=== PATIENT | female | born 1930 | race Caucasian/White ===

== ENCOUNTER 2016-11-27 13:32 | Inpatient (IN) | payer MEDICARE ==
[~2016-11-27] VITALS: Ht 152.4 cm; Wt 57.0 kg
[~2016-11-27 13:32] MED LIST: ASPIRIN 81M81 MG/TA2 PO; BETAPACE 80MG80 MG PO; COLACE 100100 MG/CAP PO; GLUCOPHAGE1000 MG PO; KLOR-CON M2020 MEQ PO; LANOXIN 0.120.125 MG PO; LASIX 40MG TABL40 MG PO; MULTAQ400 MG PO; RT ADVAIR 128 DISKUS IH; ZOCOR 10MG10 MG PO
[2016-11-27 14:47] VITALS: BP 104/48; PULSE 97; TEMP 98.1
[2016-11-27] MEDS ORDERED: ELIQUIS 2.5 PO (16:15)
[2016-11-27] MEDS ORDERED: PACERONE100 MG PO (16:15)
[2016-11-27 17:42] LABS: MEAN CELL VOLUME 88 fl (80.0-100.0); MEAN CORPUSCULAR HGB CONC 29 g/dl (33.0-37.0); MEAN PLATELET VOLUME 8.7 fl (7.4-10.4); PLATELET COUNT 555 K/mm3 (130-400); RED BLOOD COUNT 2.97 M/mm3 (4.10-5.30); REDCELL DISTRIBUTION WIDTH-CV 17.7 % (11.5-14.5); WHITE BLOOD COUNT 8.2 K/mm3 (4.8-10.8)
[2016-11-27 17:48] LABS: HEMATOCRIT 26.1 % (37.0-47.0); HEMOGLOBIN 7.5 g/dl (12.5-16.0); MEAN CORPUSCULAR HEMOGLOBIN 25 pg (27.0-31.0)
[2016-11-27 17:54] LABS: CALCIUM 8.8 mg/dL (8.4-10.2); CREATININE, serum 1.48 mg/dL (0.52-1.25)
[2016-11-27 23:40] VITALS: BP 133/48; PULSE 76; TEMP 98.3
[2016-11-27 23:58] VITALS: BP 131/39; PULSE 77
[2016-11-28] VITALS (15 sets, daily range): BP systolic 89–150; BP diastolic 35–53; PULSE 73–81; TEMP 97.4–98
[2016-11-28 11:42] LABS: CALCIUM 8.4 mg/dL (8.4-10.2); CREATININE, serum 1.41 mg/dL (0.52-1.25)
[2016-11-28 11:57] LABS: POTASSIUM 2.9 mmol/L (3.4-5.0)
[2016-11-28 12:27] LABS: HEMATOCRIT 29.5 % (37.0-47.0); HEMOGLOBIN 8.4 g/dl (12.5-16.0)
[2016-11-28 13:20] LABS: CALCIUM 8.6 mg/dL (8.4-10.2); CREATININE, serum 1.39 mg/dL (0.52-1.25); POTASSIUM 3.2 mmol/L (3.4-5.0)
[2016-11-28 13:23] LABS: INR 1.3 (0.8-3.0)
[2016-11-28 13:24] LABS: BASO % 0.4 % (0.0-2.0); EOS % 0.5 % (0-4.0); GRAN # 6.2 (1.4-6.5); GRAN % 77.9 % (42.2-75.2); LYMPH # 1.3 (1.2-3.4); LYMPH % 16.2 % (20.0-51.0); MEAN CELL VOLUME 88 fl (80.0-100.0); MEAN CORPUSCULAR HGB CONC 31 g/dl (33.0-37.0); MEAN PLATELET VOLUME 8.6 fl (7.4-10.4); MONO # 0.4 (0.1-0.6); MONO % 4.5 % (1.7-9.3); PLATELET COUNT 467 K/mm3 (130-400); RED BLOOD COUNT 3.68 M/mm3 (4.10-5.30); REDCELL DISTRIBUTION WIDTH-CV 16.6 % (11.5-14.5)
[2016-11-28 13:39] LABS: HEMATOCRIT 32.5 % (37.0-47.0); HEMOGLOBIN 9.9 g/dl (12.5-16.0); MEAN CORPUSCULAR HEMOGLOBIN 27 pg (27.0-31.0)
[2016-11-28 23:14] LABS: PARTIAL THROMBOPLASTIN TIME 60.6 SECONDS (26.0-37.0)
[2016-11-29 01:17] LABS: PARTIAL THROMBOPLASTIN TIME 40.9 SECONDS (26.0-37.0)
[2016-11-29 01:28] VITALS: BP 131/36; PULSE 75
[2016-11-29 07:43] VITALS: BP 134/49; PULSE 79; TEMP 98.3
[2016-11-29 08:07] LABS: CALCIUM 8.5 mg/dL (8.4-10.2); POTASSIUM 3.4 mmol/L (3.4-5.0)
[2016-11-29 08:25] LABS: CREATININE, serum 1.38 mg/dL (0.52-1.25)
[2016-11-29 11:43] VITALS: BP 130/73; PULSE 94; TEMP 97.6
[2016-11-29 20:15] VITALS: BP 143/47; PULSE 87; TEMP 97.6
[2016-11-30] VITALS (7 sets, daily range): BP systolic 102–153; BP diastolic 40–50; PULSE 72–90; TEMP 97.5–98.9
[2016-11-30 07:19] LABS: MEAN CELL VOLUME 89 fl (80.0-100.0); MEAN CORPUSCULAR HGB CONC 30 g/dl (33.0-37.0); MEAN PLATELET VOLUME 8.6 fl (7.4-10.4); PLATELET COUNT 420 K/mm3 (130-400); RED BLOOD COUNT 3.84 M/mm3 (4.10-5.30); REDCELL DISTRIBUTION WIDTH-CV 16.8 % (11.5-14.5); WHITE BLOOD COUNT 6.4 K/mm3 (4.8-10.8)
[2016-11-30 07:32] LABS: CALCIUM 8.5 mg/dL (8.4-10.2); CREATININE, serum 1.36 mg/dL (0.52-1.25); POTASSIUM 3.4 mmol/L (3.4-5.0)
[2016-11-30 08:05] LABS: HEMOGLOBIN 10.2 g/dl (12.5-16.0); MEAN CORPUSCULAR HEMOGLOBIN 27 pg (27.0-31.0)
[2016-12-01 04:29] VITALS: BP 132/47; PULSE 78; TEMP 98.6
[2016-12-01 07:37] LABS: CALCIUM 8.9 mg/dL (8.4-10.2); CREATININE, serum 1.4 mg/dL (0.52-1.25); POTASSIUM 3.7 mmol/L (3.4-5.0)
[2016-12-01 08:14] VITALS: BP 120/68; PULSE 95; TEMP 97.5
[2016-12-01 11:50] VITALS: BP 119/46; PULSE 82; TEMP 97.8
[2016-12-01 16:25] VITALS: BP 116/44; PULSE 96; TEMP 97.7
[2016-12-01 19:17] VITALS: BP 122/42; PULSE 90; TEMP 98.5
[2016-12-01 23:25] VITALS: BP 133/43; PULSE 79; TEMP 98.8
[2016-12-02 03:24] VITALS: BP 109/64; PULSE 65; TEMP 98.4
[2016-12-02 05:57] VITALS: BP 125/43; PULSE 78; TEMP 97.2
[2016-12-02 07:33] LABS: MEAN CELL VOLUME 90 fl (80.0-100.0); MEAN CORPUSCULAR HGB CONC 30 g/dl (33.0-37.0); MEAN PLATELET VOLUME 8.7 fl (7.4-10.4); PLATELET COUNT 409 K/mm3 (130-400); RED BLOOD COUNT 3.96 M/mm3 (4.10-5.30); REDCELL DISTRIBUTION WIDTH-CV 16.7 % (11.5-14.5); WHITE BLOOD COUNT 6.1 K/mm3 (4.8-10.8)
[2016-12-02 07:38] LABS: HEMATOCRIT 35.6 % (37.0-47.0); HEMOGLOBIN 10.5 g/dl (12.5-16.0); MEAN CORPUSCULAR HEMOGLOBIN 27 pg (27.0-31.0)
[2016-12-02 07:44] VITALS: BP 116/52; PULSE 81; TEMP 97.6
[2016-12-02 07:49] LABS: CREATININE, serum 1.58 mg/dL (0.52-1.25); POTASSIUM 3.7 mmol/L (3.4-5.0)
[2016-12-02 11:17] VITALS: BP 134/44; PULSE 79; TEMP 98
[2016-12-02] MEDS ORDERED: PRADAXA75 MG PO (14:25)
== END 2016-12-02 16:24 | disposition home or self-care (01) | DRG 300 ==
LOC: MEDICAL 13:32
PROVIDERS: Internal Medicine Interventional Cardiology
DX: I72.4 Aneurysm of artery of lower extremity (principal); I82.422 Acute embolism and thrombosis of left iliac vein; J44.9 Chronic obstructive pulmonary disease, unspecified; Z95.1 Presence of aortocoronary bypass graft; I25.10 Atherosclerotic heart disease of native coronary artery without angina pectoris; E11.9 Type 2 diabetes mellitus without complications; I27.2 Other secondary pulmonary hypertension; I48.91 Unspecified atrial fibrillation; Z79.01 Long term (current) use of anticoagulants
CPT/HCPCS: J1644; J1940; J3010; J7060; P9016

== ENCOUNTER 2017-01-21 15:58 | Observation (INO) | payer MEDICARE ==
[~2017-01-21] VITALS: Ht 154.9 cm; Wt 51.7 kg
[~2017-01-21 15:58] MED LIST changes: +ELIQUIS 2.5 PO; +PACERONE100 MG PO; +PRADAXA75 MG PO
[2017-01-21 16:53] VITALS: BP 94/39; PULSE 101; TEMP 97.6
[2017-01-21] MEDS ORDERED: PLAVIX 75MG TAB75 MG PO (17:01)
[2017-01-21] MEDS ORDERED: ASPIRIN E.C. 8181 MG PO (17:04)
[2017-01-21 18:02] LABS: BASO % 0.2 % (0.0-2.0); EOS % 0.3 % (0-4.0); GRAN # 10.6 (1.4-6.5); GRAN % 92.7 % (42.2-75.2); LYMPH # 0.4 (1.2-3.4); LYMPH % 3.6 % (20.0-51.0); MEAN CELL VOLUME 90 fl (80.0-100.0); MEAN CORPUSCULAR HGB CONC 30 g/dl (33.0-37.0); MEAN PLATELET VOLUME 9.7 fl (7.4-10.4); MONO # 0.3 (0.1-0.6); MONO % 2.8 % (1.7-9.3); PLATELET COUNT 303 K/mm3 (130-400); REDCELL DISTRIBUTION WIDTH-CV 19.3 % (11.5-14.5); WHITE BLOOD COUNT 11.4 K/mm3 (4.8-10.8)
[2017-01-21 18:08] LABS: HEMATOCRIT 34.2 % (37.0-47.0); HEMOGLOBIN 10.3 g/dl (12.5-16.0); MEAN CORPUSCULAR HEMOGLOBIN 27 pg (27.0-31.0)
[2017-01-21 18:18] LABS: CALCIUM 8.1 mg/dL (8.4-10.2); CREATININE, serum 1.14 mg/dL (0.52-1.25); POTASSIUM 3.2 mmol/L (3.4-5.0)
[2017-01-21 20:27] VITALS: BP 66/36; BP 99/34; PULSE 99; TEMP 98
[2017-01-22] VITALS (7 sets, daily range): BP systolic 96–131; BP diastolic 39–47; PULSE 68–92; TEMP 97.7–98.6
[2017-01-23 03:19] VITALS: BP 133/60; PULSE 81; TEMP 98.1
[2017-01-23 08:29] VITALS: BP 114/50; PULSE 90; TEMP 97.8
[2017-01-23 11:43] VITALS: BP 127/40; PULSE 85; TEMP 96.8
[2017-01-23 15:42] VITALS: BP 132/50; PULSE 90; TEMP 98.2
[2017-01-23 20:50] VITALS: BP 143/53; PULSE 85; TEMP 97.6
[2017-01-24] VITALS (7 sets, daily range): BP systolic 133–158; BP diastolic 39–72; PULSE 79–92; TEMP 97.9–98.6
[2017-01-25 03:08] VITALS: BP 147/50; PULSE 90; TEMP 98.9
[2017-01-25 07:33] VITALS: BP 144/55; PULSE 79; TEMP 97.5
[2017-01-25] MEDS ORDERED: TYLENOL 325MG325 MG PO (11:17)
[2017-01-25 12:08] VITALS: BP 134/50; PULSE 81; TEMP 98
== END 2017-01-25 13:56 | disposition home or self-care (01) ==
LOC: MEDICAL 15:58
PROVIDERS: Internal Medicine Interventional Cardiology
DX: R53.1 Weakness (principal); E43 Unspecified severe protein-calorie malnutrition; R63.4 Abnormal weight loss; I73.9 Peripheral vascular disease, unspecified; I25.10 Atherosclerotic heart disease of native coronary artery without angina pectoris; E11.9 Type 2 diabetes mellitus without complications; R60.0 Localized edema; I82.522 Chronic embolism and thrombosis of left iliac vein; I70.213 Atherosclerosis of native arteries of extremities with intermittent claudication, bilateral legs; I48.91 Unspecified atrial fibrillation; I10 Essential (primary) hypertension; Z79.01 Long term (current) use of anticoagulants; I27.2 Other secondary pulmonary hypertension; I08.1 Rheumatic disorders of both mitral and tricuspid valves; Z87.891 Personal history of nicotine dependence
CPT/HCPCS: OP; G0378; G8978-GP; G8979-GP; G8987-GO; G8988-GO; J1940

== ENCOUNTER 2017-02-27 13:20 | Inpatient (IN) | payer MEDICARE ==
[~2017-02-27] VITALS: Ht 154.9 cm; Wt 50.3 kg
[~2017-02-27 13:20] MED LIST changes: +ASPIRIN E.C. 8181 MG PO; +PLAVIX 75MG TAB75 MG PO; +TYLENOL 325MG325 MG PO
[2017-02-27 14:31] VITALS: BP 149/93; PULSE 85; TEMP 97.8
--- NOTE | 2017-02-27 15:24 | NUR ---
22 gauge INT inserted into left hand. Telemetry applied. Medications, allergies, and pharmacy updated. Dr. Corcoran updated on arrival Medication list given to him. Daughter at bedside.
[2017-02-27 16:36] VITALS: BP 189/76; PULSE 76; TEMP 98.4
[2017-02-27 16:45] LABS: MEAN CELL VOLUME 91 fl (80.0-100.0); MEAN CORPUSCULAR HGB CONC 29 g/dl (33.0-37.0); PLATELET COUNT 440 K/mm3 (130-400); RED BLOOD COUNT 3.79 M/mm3 (4.10-5.30); REDCELL DISTRIBUTION WIDTH-CV 18.6 % (11.5-14.5)
[2017-02-27 16:46] LABS: HEMATOCRIT 34.6 % (37.0-47.0); HEMOGLOBIN 10.1 g/dl (12.5-16.0); MEAN CORPUSCULAR HEMOGLOBIN 27 pg (27.0-31.0)
--- NOTE | 2017-02-27 16:47 | NUR ---
Pt with scattered bruising allover body. Skin tear noted to rigth casillas, 0.5ml. Dr. Corcoran orders a WCC for this. 4+ edema to BLE. Bumex given, infusing as ordered, see OCT. RT in room for EKG at this time. Call light within reach.
[2017-02-27 16:58] LABS: CALCIUM 8.6 mg/dL (8.4-10.2); CREATININE, serum 1.09 mg/dL (0.52-1.25); POTASSIUM 3.8 mmol/L (3.4-5.0)
--- NOTE | 2017-02-27 20:15 | NUR ---
Pt A+Ox3, sitting up in bed. Frequent use of bedside commode to urinate clear yellow urine. Bilateral lower leg edema is 3+. No complaints of shortness of breath, 2 liters oxygen applied via NC. IV as no s/s complications, no further needs at this time. Applying barrier cream to buttox after sawyer care.
[2017-02-27 20:23] VITALS: BP 170/60; BP 173/63; PULSE 77; TEMP 98
[2017-02-27 23:02] VITALS: BP 175/62; PULSE 80; TEMP 97.6
[2017-02-28 03:56] VITALS: BP 159/68; PULSE 88; TEMP 97.5
--- NOTE | 2017-02-28 06:20 | NUR ---
Throughout night pt had no c/o pain, IV has no s/s complications. Pt was assisted to commode many times for urination and one bowel movement. Vitals remain stable,.
--- NOTE | 2017-02-28 07:23 | NUR ---
Report given to alexa RN. Pt on commode.
[2017-02-28 07:37] LABS: CALCIUM 8.5 mg/dL (8.4-10.2); CREATININE, serum 1.13 mg/dL (0.52-1.25); POTASSIUM 3.6 mmol/L (3.4-5.0)
[2017-02-28 08:00] VITALS: BP 177/61; PULSE 61; TEMP 98.6
--- NOTE | 2017-02-28 08:03 | NUR ---
Report received from CATIE Pryor. [place] [facility] Call light in reach.
--- NOTE | 2017-02-28 08:20 | NUR ---
Pt having breakfast in bed alert and oriented. Pt denied pain. Cup of juice provided per pt's request. Call light in reach.
--- NOTE | 2017-02-28 10:10 | NUR ---
Visit attempted and pt sleeping in her chair. Call light in reach.
--- NOTE | 2017-02-28 11:52 | NUR ---
First visit from the yardage control operator forming. No needs right now.
--- NOTE | 2017-02-28 11:58 | NUR ---
Pt resting in bed comfortably and denied pain. Call light in reach.
[2017-02-28 12:00] VITALS: BP 115/41; PULSE 102; TEMP 98.3
--- NOTE | 2017-02-28 13:27 | NUR ---
SW met with patient to review discharge plan. The patient was discharged home with daughter on previous admission, patient confirms that she was never admitted to [facility]. Patient is open to nursing facility placement upon discharge, she requests that SW contact daughter to discuss discharge plan. SW contacted daughter, daughter reports that she would like for the patient to go to [facility] upon discharge. Referral made to [facility] reporting that the patient will require pre-authorization for skilled stay, and they will not hear back from insurance until Friday, 03/03.
--- NOTE | 2017-02-28 14:32 | NUR ---
Pt resting in bed comfortably and no concern. Call light in reach.
--- NOTE | 2017-02-28 15:31 | NUR ---
Visit attempted and pt sleeping soundly in bed. Call light in reach.
[2017-02-28 16:07] VITALS: BP 105/65; BP 143/57; PULSE 53; PULSE 81; TEMP 98; TEMP 98.7
--- NOTE | 2017-02-28 16:58 | NUR ---
Pt resting in bed comfortably and having dinner. Call light in reach.
--- NOTE | 2017-02-28 17:38 | NUR ---
Pt used BSC to urinate and have BM. pt back to bed. Pt's daughter visiting in . Call light in reach.
--- NOTE | 2017-02-28 19:12 | NUR ---
Report given to CATIE Pryor. Pt resting in bed. Call light in reach.
[2017-02-28 19:57] VITALS: BP 156/59; PULSE 76; TEMP 97.4
--- NOTE | 2017-02-28 21:40 | NUR ---
Pt sitting on commode, having frequent urination. Bruises up arms and legs bilaterally, edema 2+ bilateral lower legs. Assessment findings within normal limits. No c/o pain, nausea. IV has no s/s complciations. will cotnienu to monitor.
[2017-03-01 01:18] VITALS: BP 139/48; PULSE 81; TEMP 97.7
[2017-03-01 05:15] VITALS: BP 138/56; PULSE 79; TEMP 98.2
--- NOTE | 2017-03-01 06:10 | NUR ---
Throughout night pt had no c/o pain, IV has no s/s complications. Pt was assisted to BSC many times to urinate. Pt is weak but reasonably stable on her feet. Vitals remain stable.
[2017-03-01 07:30] LABS: BLOOD UREA NITROGEN 16 mg/dL (7-17); CALCIUM 8.5 mg/dL (8.4-10.2); CHLORIDE 93 mmol/L (98-107); CREATININE, serum 1.28 mg/dL (0.52-1.25); GLUCOSE 95 mg/dL (74-106); POTASSIUM 3.5 mmol/L (3.4-5.0); SODIUM 142 mmol/L (137-145)
[2017-03-01 07:36] LABS: CARBON DIOXIDE 39 mmol/L (22-30)
--- NOTE | 2017-03-01 07:36 | NUR ---
report given to day RN. Pt asleep at this time, no immediate needs.
[2017-03-01 07:41] VITALS: BP 141/59; PULSE 82; TEMP 98.1
--- NOTE | 2017-03-01 08:00 | NUR ---
ASSESSMENT COMPLETED. A&OX3, ABLE TO VERBALIZE NEEDS. DENIES PAIN. NO RESP. DISTRESS NOTED. VSS. TELE ON. PERIPHERAL PULSES PALPABLE B/L. +2 EDEMA BLE. BUMEX INFUSING PER ORDERS TO LEFT HAND. DENIES NEEDS. CALL LIGHT IN REACH.
[2017-03-01 12:19] VITALS: BP 131/54; PULSE 84; TEMP 98.3
[2017-03-01 16:11] VITALS: BP 143/53; PULSE 77; TEMP 98.3
--- NOTE | 2017-03-01 21:30 | NUR ---
Pt lying in bed, A+Ox3. No complaints of shortness of breath, 2 L oxygen via NC applied. Left lower extremity has 2+ edema, right lower 1+, greatly improved since yesterday. IV has no s/s complications.
[2017-03-01 21:35] VITALS: BP 140/50; PULSE 85; TEMP 98.2
[2017-03-02 00:10] VITALS: BP 141/60; PULSE 88
--- NOTE | 2017-03-02 06:52 | NUR ---
Throughout night pt was assisted to BSC about hourly, urine clear yellow. Vitals remain stable, Tele normal sinus. No notable changes in status. Bed low, call light in reach,
[2017-03-02 07:10] LABS: CALCIUM 8.5 mg/dL (8.4-10.2); CREATININE, serum 1.37 mg/dL (0.52-1.25); POTASSIUM 3.3 mmol/L (3.4-5.0)
[2017-03-02 07:49] VITALS: BP 125/52; PULSE 85; TEMP 98
--- NOTE | 2017-03-02 08:40 | NUR ---
Assessment completed. A&OX3, able to verbalize needs. Denies pain. No resp. disress noted on room air. VSS. +2 BLE edema. BLE currently elevated. Bumex infusing per orders to left hand. Accurate I&O continue to be obtained. Denies further needs. Call light in reach.
[2017-03-02 13:10] VITALS: BP 148/51; PULSE 88; TEMP 97.9
[2017-03-02 16:07] VITALS: BP 117/50; PULSE 99; TEMP 98.1
--- NOTE | 2017-03-02 20:00 | NUR ---
Pt laying in bed. Assessment complete. A&Ox3. Lungs CTA. Heart rhythm regular. Audible bowel sounds X4. IV fluids infusing per orders without difficulty. Pt denies pain at this time. Pt denies any needs at this time. Call light in reach. Will continue to monitor.
[2017-03-02 20:33] VITALS: BP 147/66; PULSE 87; TEMP 97.8
[2017-03-02 23:02] VITALS: BP 152/58; PULSE 80; TEMP 98.4
[2017-03-03 03:19] VITALS: BP 151/69; PULSE 68; TEMP 98.3
--- NOTE | 2017-03-03 07:30 | NUR ---
Pt sleeping at this time. Report given to Liz HADDAD.
[2017-03-03 08:22] LABS: CALCIUM 8.4 mg/dL (8.4-10.2); CREATININE, serum 1.32 mg/dL (0.52-1.25); POTASSIUM 3.3 mmol/L (3.4-5.0)
[2017-03-03 09:14] VITALS: BP 147/62; PULSE 82; TEMP 97.3
--- NOTE | 2017-03-03 09:39 | NUR ---
Pt resting in bed with call light within reach; bumex drip infusing to left hand without complication. Assessment complete and charted; no further needs at this time. Will continue to monitor.
--- NOTE | 2017-03-03 11:12 | NUR ---
[facility] denies patient.
--- NOTE | 2017-03-03 11:52 | NUR ---
First visit from the cyanide pot hardener. No needs right now.
[2017-03-03 13:20] VITALS: BP 1449/60; BP 149/60; PULSE 79; TEMP 98.2
--- NOTE | 2017-03-03 15:29 | NUR ---
[facility] accepts patient. SW contacted daughter, daughter reports that she is no longer in town and can not provide transportation until tomorrow. SW informed [facility] coordinator of delayed discharge.
--- NOTE | 2017-03-03 15:30 | NUR ---
Pt will discharge to [facility] in AM; Dr. Corcoran aware of paperwork and that he will need to call doc to doc report tomorrow to Mouna Mejia. The number is [phone], information placed in the chart.
[2017-03-03 17:18] VITALS: BP 137/57; PULSE 83; TEMP 98.1
--- NOTE | 2017-03-03 18:20 | NUR ---
Pt had uneventful day. Plan for discharge tomorrow; reviewed with family members, patient, and Dr. Corcoran. No further needs at this time; will continue to monitor.
--- NOTE | 2017-03-03 21:30 | NUR ---
Pt sleeping at this time. Assessment complete. A&Ox3. Lungs CTA. Heart rhythm regular. Audible bowel sounds X4. Pt denies pain at this time. Pt denies any needs at this time. Call light in reach. Will continue to monitor.
[2017-03-04 04:52] VITALS: BP 126/48; PULSE 88; TEMP 98.3
[2017-03-04 06:44] LABS: CALCIUM 8.8 mg/dL (8.4-10.2); CREATININE, serum 1.41 mg/dL (0.52-1.25); POTASSIUM 3.6 mmol/L (3.4-5.0)
--- NOTE | 2017-03-04 07:14 | NUR ---
Pt sleeping at this time. Report given to Liz HADDAD.
--- NOTE | 2017-03-04 08:41 | NUR ---
Pt resting in chair with call light within reach; assessment complete and charted. Meds given, eating breakfast, denies further needs at this time. Will continue to monitor.
[2017-03-04 09:01] VITALS: BP 104/45; PULSE 83; TEMP 98.2
--- NOTE | 2017-03-04 10:52 | NUR ---
[facility] on [facility], #[phone]. SW notified daughter of planned discharge. Daughter reports that she is gathering items at home, but she plans to be up to the hospital this morning to transport. Anticipated that the patient will discharge between [id number] today.
[2017-03-04 10:53] VITALS: BP 104/45; PULSE 83; TEMP 98.2
[2017-03-04] MEDS ORDERED: ALDACTONE50 MG PO (11:18)
--- NOTE | 2017-03-04 11:43 | NUR ---
Follow up visit from the ball fringe machine operator. No needs right now.
--- NOTE | 2017-03-04 12:37 | NUR ---
Reviewed discharge instructions and meds with pt and her daughter. Daughter will be transporting to [facility]. This nurse called report to RN at [facility]; Dr. Corcoran called Doc to Doc report. All meds and paperwork sent with pt. INT removed from left hand without complications. No further needs or questions. Escorted from facility with [employer].
== END 2017-03-04 12:38 | disposition swing bed (61) | DRG 293 ==
LOC: MEDICAL 13:20
PROVIDERS: ADMIT Internal Medicine Interventional Cardiology
DX: I50.31 Acute diastolic (congestive) heart failure (principal); E11.9 Type 2 diabetes mellitus without complications; J44.9 Chronic obstructive pulmonary disease, unspecified; I25.10 Atherosclerotic heart disease of native coronary artery without angina pectoris; Z95.820 Peripheral vascular angioplasty status with implants and grafts; Z87.891 Personal history of nicotine dependence
CPT/HCPCS: J1940